=== PATIENT | female | born 1990 | race African-American/Black ===

== ENCOUNTER 2016-08-12 21:37 | Outpatient (CLI) | payer OTHER ==
[~2016-08-12] VITALS: Ht 167.6 cm; Wt 105.0 kg
[2016-08-12 21:58] VITALS: BP 127/70
== END 2016-08-12 22:30 | disposition home or self-care (01) ==
LOC: M LDO 21:37
PROVIDERS: ATTEND Obstetrics & Gynecology
DX: O26.892 Other specified pregnancy related conditions, second trimester (principal); R51 Headache; Z3A.27 27 weeks gestation of pregnancy; O24.414 Gestational diabetes mellitus in pregnancy, insulin controlled

== ENCOUNTER 2016-09-01 23:59 | Outpatient (CLI) | payer OTHER ==
[~2016-09-01] VITALS: Ht 160 cm; Wt 172.0 kg
[2016-09-02 00:37] VITALS: BP 117/67
[2016-09-02] MEDS ORDERED: insulin pump SUBQ (00:50)
[2016-09-02] MEDS ORDERED: PRENTAB9 PO (00:50)
[2016-09-03] MEDS ORDERED: OMEP10CASR PO (19:07)
== END 2016-09-02 01:12 | disposition home or self-care (01) ==
LOC: M LDO 23:59
PROVIDERS: ATTEND Obstetrics & Gynecology
DX: O36.8130 Decreased fetal movements, third trimester, not applicable or unspecified (principal); O26.853 Spotting complicating pregnancy, third trimester; Z3A.30 30 weeks gestation of pregnancy

== ENCOUNTER 2016-09-03 18:39 | Outpatient (CLI) | payer OTHER ==
[~2016-09-03] VITALS: Ht 167.6 cm; Wt 108.0 kg
[~2016-09-03 18:39] MED LIST: PRENTAB9 PO; insulin pump SUBQ
[2016-09-03 18:51] VITALS: BP 126/56
[2016-09-03] MEDS ORDERED: OMEP10CASR PO (19:07)
[2016-09-03 19:37] LABS: MEAN CORPUSCULAR HEMOGLOBIN 27.2 pg (27.0-33.0); MEAN CORPUSCULAR HGB CONC 33.7 g/dl (32.0-36.5); MEAN CORPUSCULAR VOLUME 80.9 fl (80.0-96.0); RED CELL DISTRIBUTION WIDTH 14.2 % (11.5-14.5)
--- NOTE | 2016-09-04 06:57 | HPE ---
DATE OF ADMISSION: 09/03/2016 This lady is a 26-year-old 2, para 1, LMP 09/05/2015, EDC 11/09/2016 at 30 and 2 weeks of gestation had a fall on the ice today with no loss of consciousness or fluid. 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 Hemoglobin A1c is 7.7. She has had a previous section for failed induction of labor in 2011 and she is now told us that she is going to be delivering in [place]. She just came from [place] today. Her past history is in 2012, at 37 and 3 induction of labor because of diabetes, failed induction, had a primary section of live female . Her labs are A+, HIV negative, Hep negative, RPR negative, rubella immune. Varicella nonimmune. Pap normal. Urine negative. Gonorrhea and chlamydia negative. Hemoglobin A1c as mentioned immediately today is 7.7. On physical examination, she does not appear in any distress. She is normocephalic, atraumatic. Neck: Full range of motions. Pupils equal and reactive to light. She responds to all commands. Her distal pulses are symmetric. No evidence of deep venous thrombosis (DVT), pulmonary embolus (PE) or superficial phlebitis. No CVA tenderness. Chest is clear bilaterally to bases with no wheezes or rhonchi. Abdomen is soft, nontender. No point tenderness. Four quadrant bowel sounds are noted. No bruising noted anywhere and a category 1 strip was noted. She has no rashes or lesions or pruritus. No arthralgia, myalgia. She does not complain of cough, wheeze, shortness of breath or dyspnea on exertion. She has no chest pain. She is not bleeding. She is neuro complete. She is not incontinent, urgency or frequency. No nausea, vomiting, diarrhea or constipation. She has diabetic issues in that she is moderately well controlled at the present time on insulin pump and she is aggressively monitored by [facility]. She has no evidence of vaginal loss. No bleeding. No pelvic pain. No evidence of uterine contractions. She does not smoke or drink or abuse drugs. She is . There is no domestic violence. Our management plan is to hydrate her, do Kleihauer-Betke and CBC, A1c. We gave her diagnostic precautions. She did tell us that she just came from [place] today and that they planned for her delivery there and she will have an elective repeat section at the appropriate interval. Her blood pressure today is 126/56, respirations are 16, pulse is 99, temperature 98.3. Hemoglobin 10.3, hematocrit 30.7, platelets are 218. A1c is 7.7. Urine is 1.020, pH is 5, negative, negative, negative. In summary, we have a 30 and 2 weeks of gestation, had a fall on the ice with no consequences. Discharge precautions were given. The patient is going to continue to follow at [facility] for the next couple of visits and then continue with [facility].
== END 2016-09-03 21:34 | disposition home or self-care (01) ==
LOC: M LDO 18:39
PROVIDERS: ATTEND Obstetrics & Gynecology
DX: O26.893 Other specified pregnancy related conditions, third trimester (principal); Z3A.30 30 weeks gestation of pregnancy; O24.414 Gestational diabetes mellitus in pregnancy, insulin controlled; Z79.4 Long term (current) use of insulin

== ENCOUNTER 2016-09-23 16:12 | Outpatient (CLI) | payer OTHER ==
[~2016-09-23] VITALS: Ht 167.6 cm; Wt 108.0 kg
[~2016-09-23 16:12] MED LIST changes: +OMEP10CASR PO
[2016-09-23 16:23] VITALS: BP 125/71
--- NOTE | 2016-09-23 19:45 | IPNPDOC ---
Text Note Date of Service The patient was seen on 09/23/16. NOTE Subjective: Janina is a 26yo with a lema IUP at 32w5d by 6 week US presents to triage c/o decreased movement. She states she has not really felt any movement all day. She tried eating, drinking something cold, but nothing elicited movements she could feel. Patient receives majority of her care at [facility] secondary to poorly controlled Class C Diabetes on insulin pump. Has hx of prior . ROS: Admits: adequate hydration Denies: fever, chills, vaginal bleeding/discharge/Loss of fluid, urinary symptoms, CTXs, recent illness Objective: VSS NST: FHT 150 with moderate variability, +accel, -decel. Reactive NST. [place]: no CTXs or uterine irritability Physical Exam: General: WDWN gravid female in NAD Mental: A&Ox3 Abdomen: Gravid abdomen without tenderness in any quadrant. TAUS: lema IUP, positive FCA and FM, placenta anterior, breech presentation ( head in maternal LUQ), ROBERT 15cm. Assessment: Janina is a 26yo with a lema IUP at 32w5d by 6 week US with active movement on US. ROBERT 15cm, Reactive NST without CTXs or uterine irritability. Plan: -f/u as scheduled at [facility] with routine OB care and routine NSTs/AFIs for Class C DM -kick counts every day. Told pt she wants 10 kicks in two hour time period. -Nurse further educated pt on how to perform kick counts. -encouraged adequate hydration -Discussed term labor and decreased movement precautions -return to L&D triage for any concerns -Medical reconciliation reviewed Dr. Angela Gaspar MD Staff Physician, OBGYN Adriana ARMSTRONG I+O Adriana ARMSTRONG I+O Vital Signs Date Time Temp Pulse Resp B/P Pulse Ox O2 Delivery O2 Flow Rate FiO2 09/23/16 16:23 97.0 111 18 125/71 ANGELA GASPAR MD Sep 23, 2016 19:45
== END 2016-09-23 17:05 | disposition home or self-care (01) ==
LOC: M LDO 16:12
PROVIDERS: ATTEND Obstetrics & Gynecology
DX: O36.8130 Decreased fetal movements, third trimester, not applicable or unspecified (principal); O24.313 Unspecified pre-existing diabetes mellitus in pregnancy, third trimester; O32.1XX0 Maternal care for breech presentation, not applicable or unspecified; Z79.4 Long term (current) use of insulin; Z3A.32 32 weeks gestation of pregnancy

== ENCOUNTER → 2016-10-11 | Outpatient (CLI) | payer OTHER ==
--- NOTE | 2016-10-11 18:18 | REP ---
Obstetric sonography: Limited study. History: Nonreactive NST. Limited OB sonogram: Findings: Scanning demonstrates a viable single intrauterine gestation in a cephalic lie. An anterior placenta is seen grade 2 without evidence of previa or abruption. Closed cervical length is 4.9 cm measured transabdominally. Biophysical profile score is 8 out of a possible 8. S/D ratio in the umbilical cord artery by Doppler is normal at 2.69. ROBERT is normal 13.8 cm. Signed by Gaurav Ryan MD 10/11/2016 07:02 P
== END ==
LOC: M RAD 16:29
PROVIDERS: ATTEND Obstetrics & Gynecology
DX: O24.013 Pre-existing type 1 diabetes mellitus, in pregnancy, third trimester (principal); Z79.4 Long term (current) use of insulin; Z3A.35 35 weeks gestation of pregnancy

== ENCOUNTER 2016-10-21 22:28 | Outpatient (CLI) | payer OTHER ==
[2016-10-21 22:43] VITALS: BP 122/78
--- NOTE | 2016-10-22 01:14 | IPNPDOC ---
Text Note Date of Service The patient was seen on 10/22/16. NOTE Subjective: Janina Candelario is a 26yo with a lema IUP at approx. 37wk who presents to triage c/o decreased movement. When explicitly asked if she felt her baby move at all today, she stated, No. When asked if she did her kick counts for 2 hours after drinking something cold and sitting still only paying attention for baby movements, she stated that she did and had no movements [id number]. She is a poorly controlled Type I diabetic who receives her care from [facility] in [place]. She is scheduled for a repeat section in 2 days. ROS: Admits: adequate hydration Denies: fever, chills, vaginal bleeding/ Loss of fluid, Objective: VSS NST: Reactive with moderate variability, +accels, -decels [place]: irregular ctx Physical Exam: General: WDWN gravid female in NAD Mental: A&Ox3 Abdomen: Gravid abdomen without tenderness in any quadrant. TAUS: lema IUP, positive FCA and FM, placenta fundal/anterior, cephalic presentation, ROBERT 11.2cm. Assessment: Janina Candelario is a 26yo with a lema IUP at approx. 37wk with active movement on US. ROBERT 11.2cm. Reactive NST with irregular CTXs. Plan: -f/u as scheduled in [place] in 2 days for planned RLTCS -kick counts every day. Told pt she wants 10 kicks in two hour time period. -Nurse further educated pt on how to perform kick counts. -encouraged adequate hydration -Discussed term labor and decreased movement precautions -return to L&D triage for any concerns -Medical reconciliation reviewed Dr. Angela Gaspar MD Staff Physician, OBAdriana GUO, I+O Adriana ARMSTRONG I+O Vital Signs Date Time Temp Pulse Resp B/P Pulse Ox O2 Delivery O2 Flow Rate FiO2 10/21/16 22:43 98.4 101 20 122/78 Room Air ANGELA GASPAR MD Oct 22, 2016 01:14
== END 2016-10-21 23:20 | disposition home or self-care (01) ==
LOC: M LDO 22:28
PROVIDERS: ATTEND Obstetrics & Gynecology
DX: O36.8130 Decreased fetal movements, third trimester, not applicable or unspecified (principal); O24.013 Pre-existing type 1 diabetes mellitus, in pregnancy, third trimester; Z3A.37 37 weeks gestation of pregnancy

== ENCOUNTER 2017-06-05 13:55 | Emergency (ER) | payer OTHER ==
[~2017-06-05] VITALS: Ht 167.6 cm; Wt 105.5 kg
[~2017-06-05 13:55] MED LIST changes: +FERR1TAB8; +IBUP80TA PO; +INSUH10VL; +INSULANT; +MIREIUD; +NOVOINJ3
[2017-06-05] MEDS ORDERED: NS 1,000 ML IV ONE (15:30)
[2017-06-05] MEDS ORDERED: MORPHINE 2 MG/ML 1ML SYRINGE IV ONE (15:30)
[2017-06-05 15:55] LABS: BASO % 0.2 % (0.0-1.0); EOS # 0.2 10^3/uL (0.0-0.50); IMMATURE GRANULOCYTE % 0.4 % (0-0); LYMPH # 2.6 10^3/uL (1.5-6.5); LYMPH % 30.3 % (24.0-44.0); MEAN CORPUSCULAR HEMOGLOBIN 25.9 pg (27.0-33.0); MEAN CORPUSCULAR HGB CONC 30.5 g/dl (32.0-36.5); MEAN CORPUSCULAR VOLUME 84.7 fl (80.0-96.0); MONO # 0.4 10^3/uL (0.0-0.8); MONO % 4.4 % (0.0-5.0); NEUTROPHILS # 5.3 10^3/uL (1.8-7.7); NEUTROPHILS % 62.7 % (36.0-66.0); PLATELET COUNT, AUTOMATED 346 10^3/uL (150-450); RED CELL DISTRIBUTION WIDTH 15.4 % (11.5-14.5); WHITE BLOOD COUNT 8.4 10^3/uL (4.0-10.0)
[2017-06-05 16:14] LABS: ANION GAP 6 MEQ/L (8-16); BLOOD UREA NITROGEN 10 MG/DL (7-18); CARBON DIOXIDE LEVEL 30 MEQ/L (21-32); CHLORIDE LEVEL 106 MEQ/L (98-107); GLOMERULAR FILTRATION RATE > 60.0 (>60); GLUCOSE, FASTING 125 MG/DL (70-105); POTASSIUM SERUM 3.7 MEQ/L (3.5-5.1); SODIUM LEVEL 142 MEQ/L (136-145)
--- NOTE | 2017-06-05 16:37 | REP ---
Pelvic ultrasound including transabdominal, endovaginal and Doppler ultrasound assessment: The patient complains of bleeding since 04/22/2017 and had IUD placed on 05/29/2017. The bladder is collapsed and non distended. The uterus is anteverted but the fundus is retroflexed. The uterus is slightly enlarged measuring 10.5 x 4.7 x 73 cm. The IUD is identified within the endometrial canal. Acoustic shadowing from the IUD obscures the endometrial breaux and the endometrial thickness cannot be accurately measured. The right ovary measures two point and O 1.8 x 1.9 cm. The left ovary measures 3.3 x 1.5 x 1.5 cm. There are no dominant ovarian masses or cysts. There is vascular flow in both ovaries. The Doppler resistive index of the intraparenchymal arteries of the right ovary 0.45. Resistive index could not be performed on the left ovary could , however, vascular flow in this identified with color Doppler. There is no free fluid in the pelvis. Impression: The IUD is in within the endometrial canal. Otherwise, negative pelvic ultrasound. Signed by Samuel Butler MD 06/05/2017 04:28 P
[2017-06-05] MEDS: GASTROGRAFIN SOLUTION 30ML (Q9963) PO ONE ×3 (17:00→17:10)
[2017-06-05 18:18] VITALS: BP 112/67
== END 2017-06-05 18:22 | disposition home or self-care (01) ==
LOC: M ED 13:55
DX: N93.8 Other specified abnormal uterine and vaginal bleeding (principal); D64.9 Anemia, unspecified; R06.02 Shortness of breath; Z97.5 Presence of (intrauterine) contraceptive device; E10.9 Type 1 diabetes mellitus without complications; E28.2 Polycystic ovarian syndrome; Z79.4 Long term (current) use of insulin; Z88.0 Allergy status to penicillin; Z88.2 Allergy status to sulfonamides; Z88.8 Allergy status to other drugs, medicaments and biological substances